=== PATIENT | female | born 2000 | race Caucasian/White ===

== ENCOUNTER 2020-05-15 12:45 | Emergency (ER) | payer BC ==
[2020-05-15 15:55] VITALS: O2SAT 100
[2020-05-15 15:56] VITALS: BP 132/86; TEMP 99
--- NOTE | 2020-05-15 21:31 | ER ---
Nurse's Notes [facility] Name: Vanessa Adair Age: 20 yrs Sex: Female : 2000 Arrival Date: 05/15/2020 Time: 12:52 Bed 16 Private MD: Diagnosis: Vomiting;Diarrhea, unspecified Presentation: 05/15 12:57 Chief complaint: Patient states: N/V/D, subjective fever on Friday. Feels better today. ll1 Works at [employer], they want her to have covid test before returning to work. Coronavirus screen: Patient denies a cough. Patient denies shortness of breath or difficulty breathing. Patient denies measured and/or subjective temperature greater than 100.4F prior to today's visit. Patient denies travel on a cruise ship or to a country the [facility] currently lists as an affected area. Patient reports contact with known and/or suspected case of COVID-19. Patient instructed to continue to wear a mask when interacting with others. Patient moved to private room, placed in contact and droplet isolation with eye protection until further assessment. Ebola Screen: Patient denies travel to an Ebola-affected area in the 21 days before illness onset. Initial Sepsis Screen: Does the patient meet any 2 criteria? No. Patient's initial sepsis screen is negative. Risk Assessment: Do you want to hurt yourself or someone else? Patient reports no desire to harm self or others. Onset of symptoms was May 14, 2020. 12:57 Method Of Arrival: Ambulatory [facility] 12:57 Acuity: REHANA 4 ll1 Historical: - Allergies: 12:59 No Known Allergies; ll1 - PSHx: 12:59 None; ll1 - Immunization history:: Flu vaccine is up to date. - Social history:: Smoking status: Patient denies any tobacco usage or history of. Patient uses alcohol, only on a social basis. Patient/guardian denies using street drugs. Screenin:00 Abuse screen: Denies threats or abuse. Denies injuries from another. Nutritional jr10 screening: No deficits noted. Tuberculosis screening: No symptoms or risk factors identified. Fall Risk None identified. Assessment: 13:00 General: Appears in no apparent distress. Behavior is calm, cooperative, appropriate jr10 for age. Pain: Denies pain. Neuro: No deficits noted. Cardiovascular: No deficits noted. Respiratory: No deficits noted. GI: Abdomen is flat, non-distended, Bowel sounds present X 4 quads. Abd is soft and non tender X 4 quads. Reports diarrhea, nausea, vomiting, since yesterday; reports that her place of employment wanted her to come and get tested for COVID; pt also reports tactile fevers associated with GI s/s. : No deficits noted. EENT: No deficits noted. Derm: No deficits noted. Musculoskeletal: No deficits noted. Vital Signs: 12:57 BP 138 / 91; Pulse 85; Resp 17; Temp 99.3; Pulse Ox 100% ; Pain 0/10; ll1 15:22 BP 132 / 86; Pulse 84; Resp 18; Temp 99.0; Pulse Ox 100% on R/A; Pain 0/10; jr10 ED Course: 12:52 Patient arrived in ED. mr 12:59 Triage completed. ll1 12:59 Arm band placed on Patient placed in an exam room, on a stretcher. ll1 13:00 No apparent distress. jr10 13:00 Patient has correct armband on for positive identification. Bed in low position. Call jr10 light in reach. Side rails up X 1. Pulse ox on. NIBP on. 13:05 Osvaldo Garza NP is PHCP. pm1 13:05 Pritesh Jain MD is Attending Physician. pm1 13:30 Flu and/or RSV swab sent to lab. Strep swab sent to lab. COVID-19 swab sent to lab. jl7 13:32 Myra Belcher, NATHALY is Primary Nurse. jr10 15:25 No provider procedures requiring assistance completed. Patient did not have IV access jr10 during this emergency room visit. Administered Medications: No medications were administered Outcome: 15:03 Discharge ordered by . pm1 15:24 Discharged to home ambulatory. jr10 15:24 Condition: good 15:24 Discharge instructions given to patient, Instructed on discharge instructions, follow up and referral plans. self quarantine until COVID test results return; instructed that she will receive a phone call when results are in Demonstrated understanding of instructions, follow-up care, medications, Prescriptions given X 1. 15:25 Patient left the ED. jr10 Addendum: 05/17/2020 14:07 Addendum: COVID-19 Result: Negative result given to RN to notify pt. Attempted to d m5 contact pt regarding negative COVID-19 swab results. Left voice mail. 14:24 Addendum: COVID-19 Result: Negative result given to RN to notify pt. Notified pt of d m5 negative COVID 19 swab results. Pt advised that even with a negative test result they should remain in isolation until symptom free for 3 days without medication. Pt also advised to return to the ED for worsening symptoms. Signatures: Sveta Henderson, RN RN dm5 Hali Belcher Patrick, HEAT SEAL OPERATOR HEAT SEAL OPERATOR pm1 Gio Gómez, RN RN jl7 Masha Choudhury, RN RN ll1 Myra Belcher, RN RN jr10
--- NOTE | 2020-05-15 21:31 | EDPHYS ---
Physician Documentation [facility] Name: Vanessa Adair Age: 20 yrs Sex: Female : 2000 Arrival Date: 05/15/2020 Time: 12:52 Bed 16 Private MD: ED Physician Pritesh Jain HPI: 05/15 13:19 This 20 yrs old Female presents to ER via Ambulatory with complaints of pm1 Vomiting/Diarrhea, Fever. 13:19 The patient presents to the emergency department with nausea, vomiting, diarrhea. pm1 Onset: The symptoms/episode began/occurred yesterday. Possible causes: sick contacts. Severity of symptoms: in the emergency department the symptoms have resolved Pain is currently a 0 / 10. The patient has not recently seen a physician. Patient with onset and resolution of vomiting and diarrhea yesterday. Patient without any abdominal pain. Patient presented to the ER with request for covid testing because she has had exposure to friends who tested positive. Historical: - Allergies: 12:59 No Known Allergies; ll1 - PSHx: 12:59 None; ll1 - Immunization history:: Flu vaccine is up to date. - Social history:: Smoking status: Patient denies any tobacco usage or history of. Patient uses alcohol, only on a social basis. Patient/guardian denies using street drugs. ROS: 13:19 Constitutional: Negative for fever, chills, and weight loss, Eyes: Negative for injury, pm1 pain, redness, and discharge, ENT: Negative for injury, pain, and discharge, Neck: Negative for injury, pain, and swelling, Cardiovascular: Negative for chest pain, palpitations, and edema, Respiratory: Negative for shortness of breath, cough, wheezing, and pleuritic chest pain. 13:19 Back: Negative for injury and pain, : Negative for injury, bleeding, discharge, and swelling, MS/Extremity: Negative for injury and deformity, Skin: Negative for injury, rash, and discoloration, Neuro: Negative for headache, weakness, numbness, tingling, and seizure. 13:19 Abdomen/GI: Positive for nausea, vomiting, and diarrhea, Negative for abdominal pain. Exam: 13:19 Constitutional: This is a well developed, well nourished patient who is awake, alert, pm1 and in no acute distress. Head/Face: Normocephalic, atraumatic. 13:19 Back: No spinal tenderness. No costovertebral tenderness. Full range of motion. Skin: Warm, dry with normal turgor. Normal color with no rashes, no lesions, and no evidence of cellulitis. MS/ Extremity: Pulses equal, no cyanosis. Neurovascular intact. Full, normal range of motion. 13:19 Cardiovascular: Exam negative for acute changes, Rate: normal, Rhythm: regular, Pulses: no pulse deficits are appreciated. 13:19 Respiratory: Exam negative for acute changes, respiratory distress, shortness of breath. 13:19 Abdomen/GI: Exam negative for acute changes, Inspection: abdomen appears normal, Palpation: abdomen is soft and non-tender, in all quadrants. 13:19 Neuro: Exam negative for acute changes, Orientation: is normal, Motor: is normal, moves all fours. Vital Signs: 12:57 BP 138 / 91; Pulse 85; Resp 17; Temp 99.3; Pulse Ox 100% ; Pain 0/10; ll1 15:22 BP 132 / 86; Pulse 84; Resp 18; Temp 99.0; Pulse Ox 100% on R/A; Pain 0/10; jr10 MDM: 13:12 Patient medically screened. pm1 15:01 Data reviewed: vital signs. Data interpreted: Pulse oximetry: on room air is 100 %. pm1 Interpretation: normal. Counseling: I had a detailed discussion with the patient and/or guardian regarding: the historical points, exam findings, and any diagnostic results supporting the discharge/admit diagnosis, lab results, the need for outpatient follow up, to return to the emergency department if symptoms worsen or persist or if there are any questions or concerns that arise at home, pending covid test. 05/15 13:12 Order name: COVID-19 pm1 05/15 13:12 Order name: Flu; Complete Time: 15:01 pm05/15 13:12 Order name: Strep; Complete Time: 15:01 pm05/15 13:12 Order name: Droplet/Contact Precautions; Complete Time: 14:56 pm05/15 14:58 Order name: Throat Culture EDIL 05/15 13:12 Order name: Labs collected and sent; Complete Time: 14:55 pm05/15 13:12 Order name: O2 Per Protocol; Complete Time: 14:55 pm1 Administered Medications: No medications were administered Disposition: 16:21 Co-signature as Attending Physician, Pritesh Jain MD. rn Disposition: 05/15/20 15:03 Discharged to Home. Impression: Vomiting, Diarrhea, unspecified. - Condition is Stable. - Discharge Instructions: Food Choices to Help Relieve Diarrhea, Adult, Diarrhea, Adult, Nausea and Vomiting, Adult, Viral Gastroenteritis, Adult, COVID-19. - Prescriptions for Zofran ODT 4 mg Oral tablet,disintegrating - place 1 tablet by TRANSLINGUAL route every 8 hours As needed; 12 tablet. - Medication Reconciliation Form, Thank You Letter, Antibiotic Education, Prescription Opioid Use form. - Follow up: Emergency Department; When: As needed; Reason: Worsening of condition. Follow up: Private Physician; When: 2 - 3 days; Reason: Recheck today's complaints, Continuance of care, Re-evaluation by your physician. - Problem is new. - Symptoms have improved. Signatures: Dispatcher [employer] EDMS Pritesh Jain MD MD rn Marinas, Patrick, CHIEF BUSINESS OFFICER CHIEF BUSINESS OFFICER pm1 Masha Choudhury RN RN ll1 Myra Belcher RN RN jr10 Corrections: (The following items were deleted from the chart) 15:25 15:03 05/15/2020 15:03 Discharged to Home. Impression: Vomiting; Diarrhea, unspecified. jr10 Condition is Stable. Forms are Medication Reconciliation Form, Thank You Letter, Antibiotic Education, Prescription Opioid Use. Follow up: Emergency Department; When: As needed; Reason: Worsening of condition. Follow up: Private Physician; When: 2 - 3 days; Reason: Recheck today's complaints, Continuance of care, Re-evaluation by your physician. Problem is new. Symptoms have improved. pm1
--- OUTSIDE RECORDS SUMMARY | 2020-05-15 21:37 | XMS REPORT | Summary of Care ---
:2000 Author Organization [facility] - Health Address [address] [place] [address] Care Team Providers Name Role Phone MD Fox Primary Care Provider Unavailable Encounter Details Date Type Department Care Team Description 05/12/2020 Orders Only [facility] Doctor Unassigned, No [address] [facility] [place] [address] [address] [place] [address] Allergies No Known Allergiesdocumented as of this encounter (statuses as of 05/12/2020) Medications Medication Sig Dispensed Refills Start Date End Date Status spironolactone 25 mg Take 25 mg by 0 07/15/2018 Active tablet mouth daily. metroNIDAZOLE 500 mg Take 1 tablet by 14 tablet 0 04/28/2019 Active tabletIndications: BV mouth every 12 (bacterial vaginosis) (twelve) hours. documented as of this encounter (statuses as of 05/12/2020) Active Problems Problem Noted Date Poor sleep 04/24/[address] 05/21/2017 Anxiety and depression 04/24/2016 Marijuana use 04/24/2016 documented as of this encounter (statuses as of 05/12/2020) Resolved Problems Problem Noted Date Resolved Date Oral contraceptive use 04/24/2016 05/21/2017 Poor diet 04/24/2016 04/24/2017 documented as of this encounter (statuses as of 05/12/2020) Immunizations Name Administration Dates Next Due HPV9 11/25/2016, 07/25/2016, 04/24/201611/25 documented as of this encounter Social History Tobacco Use Types Packs/Day Years Used Date Never Smoker Smokeless Tobacco: Never Used Alcohol Use Drinks/Week oz/Week Comments Yes 0 Standard drinks or equivalent 0.0 socially Sex Assigned at Date Recorded Not on file Job Start Date Occupation Industry Not on file Not on file Not on file Travel History Travel Start Travel End No recent travel history available. documented as of this encounter Last Filed Vital Signs Not on filedocumented in this encounter Plan of Treatment Health Maintenance Due Date Last Done Comments VARICELLA VACCINES (1 of 2 - 2000 2-dose childhood series) MENINGOCOCCAL B VACCINES (1 2009 of 2 - Risk Bexsero 2-dose series) DTaP,Tdap,and Td Vaccines (1 2010 - Tdap) Depression Screening 2011 PAP SMEAR 2020 CHLAMYDIA SCREENING 04/27/2020 04/27/2019, 04/24/2016 WELL CARE VISIT: 12-21 YEARS 04/27/2020 04/27/2019, 018, (yearly) 04/24/2017, Additional history exists INFLUENZA VACCINE (#1) 2020 HPV VACCINES Completed 11/25/2016, 11/25/2016, 07/25/2016, Additional history exists MENINGOCOCCAL VACCINE Aged Out No longer eligible based on patient 's age to complete this topic PNEUMOCOCCAL 0-64 YEARS Aged Out No longe r eligible COMBINED SERIES based on patient 's age to complete this topic documented as of this encounter Procedures Procedure Name Priority Date/Time Associated Diagnosis Comme nts ASSIGNMENT OF BENEFITS Routine 05/12/2020 8:08 AM CDT documented in this encounter Results Not on filedocumented in this encounter Insurance Payer Benefit Plan Subscriber ID Effective Dates Phone Address Type / Group BCBS OF [facility] [place] [id number] 2018-Geraldine [phone] [address] PPO/POS [place] t 7 [id number] [place] [address] documented as of this encounter
--- OUTSIDE RECORDS SUMMARY | 2020-05-15 21:38 | XMS REPORT | Summary of Care ---
:2000 Author Organization [facility] Address [address] [place] [id number] Care Team Providers Name Role Phone MD Fox Primary Care Provider Unavailable Reason for Visit Reason Comments Well Woman Exam Encounter Details Date Type Department Care Team Description 05/12/2020 Office Visit [facility] Women's Munira Stevenson, Well woman exam with routine gynecological exam (Primary Dx); [facility] PA-C Encounter for screening breast examinati on; [address] [facility] [address] [facility] [address], [address] [facility] [address] [address] [place], [place] [phone] [id number] Allergies No Known Allergiesdocumented as of this [...] Travel End No recent travel history available. COVID-19 Exposure Response Date Recorded In the last month, have you been in contact with No / Unsure 05/12/2020 8:09 AM CDT someone who was confirmed or suspected to have Coronavirus / COVID-19? documented as of this encounter Last Filed Vital Signs Vital Sign Reading Time Taken Comments Blood Pressure 123/75 05/12/2020 8:18 AM CDT Pulse 79 05/12/2020 8:18 AM CDT Temperature 36.8 C (98.2 F) 05/12/2020 8:18 AM CDT Respiratory Rate 18 05/12/2020 8:18 AM CDT Oxygen Saturation - - Inhaled Oxygen Concentration - - Weight 67.7 kg (149 lb 3.2 oz) 05/12/2020 8:18 AM CDT Height 175.3 cm (5' 9") 05/12/2020 8:18 AM CDT Body Mass Index 22.03 05/12/2020 8:18 AM CDT documented in this encounter Progress Notes Munira Stevenson PA-C - 05/12/2020 8:00 AM CDT Chief complaint: Chief Complaint Patient presents with Well Woman Exam HPI Vanessa Adair is a 20 year old female presenting for well woman exam. She is particularly concerned about WWE and when to get her nexplanon removed. The patient has a Body mass index is 22.03 kg/m.. She is working on eating healthier and exercising more. The patient is not concerned about her menstrual cycles. Her cycles are irregular and last about 1-3 days. Her bleeding is minimal. The patient is sexually active. She currently has 1 sexual partner(s). She is offered sexually transmitted disease testing and declines. She has had 1 sexual partners in the past year. She engages in vaginal and oral sex. She prefers men. She is currently using nexplanon for contraception. The patient denies any urinary incontinence. She denies any fecal incontinence. Her last pap smear was never . Her next pap smear is due today. She engages in breast self awareness. She denies any breast changes. She denies any family history of breast, ovarian, uterine or colon cancer. The patient feels safe at home. She denies any history of drug use. Patient reports she does smoke marijuana occasionally. She does not smoke. She drinks socially. Her mood is good. Histories OB History Para Term AB Living 0 0 0 0 0 0 SAB TAB Ectopic Multiple Live Births 0 0 0 0 Past Medical History: Diagnosis Date ADHD (attention deficit hyperactivity disorder) Anxiety Bipolar 1 disorder Depression Marijuana use 04/24/2016 Scoliosis Family History Problem Relation Age of Onset Arthritis Mother Depression Mother Psychiatry Mother Depression Father Psychiatry Father Brain Cancer Paternal Grandmother Asthma NoFHx defects NoFHx Breast Cancer NoFHx Colon Cancer NoFHx Ovarian Cancer NoFHx Uterine Cancer NoFHx Cancer NoFHx Diabetes NoFHx Genetic NoFHx Heart NoFHx High cholesterol NoFHx Hypertension NoFHx Mental retardation NoFHx Neurological NoFHx Osteoporosis NoFHx Family Status Relation Name Status Mo Alive Fa Alive PGMo (Not Specified) NoFHx (Not Specified) Past Surgical History: Procedure Laterality Date TOOTH EXTRACTION wisdom teeth Social History Socioeconomic History Marital status: Single Spouse name: Not on file Number of children: Not on file Years of education: Not on file Highest education level: Not on file Occupational History Not on file Social Needs Financial resource strain: Not on file Food insecurity: Worry: Not on file Inability: Not on file Transportation needs: Medical: Not on file Non-medical: Not on file Tobacco Use Smoking status: Never Smoker Smokeless tobacco: Never Used Substance and Sexual Activity Alcohol use: Yes Alcohol/week: 0.0 standard drinks Comment: socially Drug use: Yes Frequency: 1.0 times per week Types: Marijuana Comment: socially Sexual activity: Yes Partners: Male control/protection: Implant Lifestyle Physical activity: Days per week: Not on file Minutes per session: Not on file Stress: Not on file Relationships Social connections: Talks on phone: Not on file Gets together: Not on file Attends faith service: Not on file Active member of club or organization: Not on file Attends meetings of clubs or organizations: Not on file Relationship status: Not on file Intimate partner violence: Fear of current or ex partner: Not on file Emotionally abused: Not on file Physically abused: Not on file Forced sexual activity: Not on file Other Topics Concern Not on file Social History Narrative No domestic abuse or violence. Social History Substance and Sexual Activity Sexual Activity Yes Partners: Male control/protection: Implant Labs none Radiology none Allergies Vanessa has No Known Allergies. Medications Vanessa has a current medication list which includes the following prescription(s): metronidazole andspironolactone. Review of Systems Constitutional: Negative for appetite change, fatigue, fever, unexpected weight change, weight gain and weight loss. HENT: Negative for rhinorrhea and sore throat. Eyes: Negative for pain and itching. Respiratory: Negative for cough, chest tightness and shortness of breath. Breasts: Negative for discharge, mass and pain. Cardiovascular: Negative for chest pain, palpitations and leg swelling. Gastrointestinal: Negative for abdominal pain, constipation, diarrhea and nausea. Genitourinary: Negative for bladder incontinence, dysuria, vaginal discharge, difficulty urinating, vaginal pain and pelvic pain. Musculoskeletal: Negative for gait problem and myalgias. Skin: Negative for rash. Neurological: Negative for dizziness and headaches. Psychiatric/Behavioral: Negative for suicidal ideas. The patient is not nervous/anxious. Endocrine: Negative for hair loss, weight gain and weight loss. BP 123/75 (BP Location: Right arm, Patient Position: Sitting, BP CUFF SIZE: Adult Medium) | Pulse 79 | Temp 36.8 C (98.2 F) (Oral) | Resp 18 | Ht 5' 9" (1.753 m) | Wt 149 lb 3.2 oz (67.7 kg) | LMP 05/01/2020 (Within Days) | BMI 22.03 kg/m Pregravid BMI: Could not be calculated Physical Exam Vitals reviewed. Constitutional: She is oriented to person, place, and time. She appears well- developed and well-nourished. Neck: No mass. No thyromegaly palpated. No neck adenopathy. Cardiovascular: Regular rate and rhythm. Pulmonary/Chest: Normal inspiratory effort. Abdominal: Abdomen is soft. No tenderness present. No hernia palpated or inspected. Neuro/Psychiatric: She has a normal mood and affect. She is oriented to person, place, and time. Skin: Skin normal. Lymphadenopathy: No neck adenopathy present. No axillary adenopathy present. No inguinal adenopathy present. Breast: Right breast exhibits no mass, no nipple discharge and no tenderness. Left breast exhibits no mass, no nipple discharge and no tenderness. Breasts are symmetrical. Normal left breast and normalright breast External genitalia: Normal external genitalia appropriate for age. Urethral meatus: Normal urethral meatus Urethra: Normal urethra. Bladder: No tenderness. Normal bladder Vagina:Normal vagina. No lesion inspected. No abnormal vaginal discharge found. Cervix: Normal cervix. No lesion. No tenderness and no discharge present. Uterus: Uterus is non-tender. Normal uterus Adnexa: Right adnexa without tenderness. Left adnexa without tenderness. Normal left adnexa and normal right adnexa Anus/perineum: Normal perineum and normal anus. Assessment/Plan Well woman exam with routine gynecological exam (primary encounter diagnosis) Plan: PAP Smear-Liquid Based, PAP Smear-Liquid Based FOLLOW-UP in 1 yr for WWE. Encounter for screening breast examination No complaints, self awareness. Nexplanon in place. - - L ARM FOLLOW-UP in 2-3 wks for nexplanon removal and reinsertion. Return to clinic in 1 yr WWE Discussed treatment options. Reviewed patient instructions and provided printed copy. This visit did not involve counseling and coordination that comprised more than 50% of the visit time. Munira Stevenson PA-C 05/12/2020 8:54 AM documented in this encounter Plan of Treatment Date Type Specialty Care Team Description 06/16/2020 Office Visit Obstetrics & Gynecology Ysabel Loera MD [address] [place] [address] [place] [id number] 05/14/2021 Office Visit Obstetrics & Gynecology Munira Stevenson PA-C [address] [place] [address] [phone] Name Type Priority Associated Diagnoses Order S chedule PAP Smear-Liquid LAB Routine Well woman exam with jonathan murray Expected: 05/12/2020, Based gynecological exam Expires: 05/12/2021 Health Maintenance Due Date Last Done Comments [...] this topic documented as of this encounter Results Not on filedocumented in this encounter Visit Diagnoses Diagnosis Well woman exam with routine gynecologic al exam - Primary Routine gynecological examination Encounter for screening breast examinati on Nexplanon in place Presence of subdermal contraceptive phyllis ce documented in this encounter Insurance Payer Benefit Plan Subscriber ID Effective Dates Phone Address Type / Group BCBS OF [facility] [id number] 2018-Geraldine [phone] [address] PPO/POS [place] t [id number] [place] [address] documented as of this encounter
--- OUTSIDE RECORDS SUMMARY | 2020-05-15 21:38 | XMS REPORT | Continuity of Care Document ---
:2000 Author Organization [facility] t Address [address] [place] [address] Care Team Providers Name Role Phone Elva ANDERSON Attending Clinician Problems This patient has no known problems. Allergies, Adverse Reactions, Alerts This patient has no known allergies or adverse reactions. Medications This patient has no known medications. Procedures This patient has no known procedures. Encounters Start End Encounter Admission Attending Care Care Encounter Source Date/Time Date/Time Type Type Clinicians Facility Department ID 2020-05-12 2020-05-12 Office NAM Stevenson [id number] 08:10:03 08:37:17 Visit Munira Elias [id number] Betty [id number] Layla [id number] [facility] [address] Results This patient has no known results.
--- OUTSIDE RECORDS SUMMARY | 2020-05-15 21:38 | XMS REPORT | Summary of Care ---
:2000 Author Organization [facility] Address [address] [place] [id number] Care Team Providers Name Role Phone MD Fox Primary Care Provider Unavailable Reason for Visit Reason Comments Well Woman Exam Encounter Details Date Type Department Care Team Description 05/12/2020 Office Visit [facility] Women[facility] Munira Stevenson, Well woman exam with routine gynecological exam (Primary Dx); [facility] [place] PA-C Encounter for screening breast examinati on; [address] [facility] [address], [address] [facility] [address] [address] [place], [place] [phone] Allergies No Known Allergiesdocumented as of [...] file Gets together: Not on file Attends adventist service: Not on file Active member of [...] Visit Obstetrics & Gynecology Ysabel Loera MD [address] [place] [address] [place] [phone] 05/14/2021 Office Visit Obstetrics & Gynecology Munira Stevenson PA-C [address] [place] [address] [phone] Name Type Priority Associated Diagnoses Order [...] Phone Address Type / Group [employer] [facility] [id number] 2018-Geraldine [phone] [address] P[place] t [address] [id number] [place] [address] documented as of this encounter
== END 2020-05-15 15:25 | disposition home or self-care (01) ==
LOC: ER 12:45
DX: R19.7 Diarrhea, unspecified (principal); Z20.828 Contact with and (suspected) exposure to other viral communicable diseases
CPT/HCPCS: 87070; 87081; 87804 ×2; U0001; 99283